=== PATIENT | male | born 1960 | race African-American/Black ===

== ENCOUNTER 2017-01-08 15:51 | Emergency (ER) | payer OTHER ==
[~2017-01-08] VITALS: Ht 172.7 cm; Wt 90.0 kg
[2017-01-08] MEDS ORDERED: TETANUS, DIPHTHERIA, PERTUSSIS VAC/PF 0.5ML (>7YR OLD) IM ONE (19:15)
[2017-01-08] MEDS ORDERED: HYDROCODONE/ACETAMINOPHEN 5/325MG TABLET PO ONE (19:15)
[2017-01-08] MEDS ORDERED: BACITRACIN ZINC OINT UDPKT TOP ONE (19:15)
[2017-01-08 20:10] VITALS: BP 135/77
== END 2017-01-08 20:20 | disposition home or self-care (01) ==
LOC: ER 17:20
DX: S51.852A Open bite of left forearm, initial encounter (principal); F32.9 Major depressive disorder, single episode, unspecified; I10 Essential (primary) hypertension; W54.0XXA Bitten by dog, initial encounter; Y93.89 Activity, other specified; Y92.89 Other specified places as the place of occurrence of the external cause; Y99.8 Other external cause status
CPT/HCPCS: 90471; 90715; 99283; A4217; Z7610

== ENCOUNTER 2017-01-11 09:16 | Emergency (ER) | payer OTHER ==
[~2017-01-11] VITALS: Ht 165.1 cm; Wt 93.0 kg
[2017-01-11 09:50] VITALS: BP 120/85
== END 2017-01-11 13:41 | disposition home or self-care (01) ==
LOC: ER 13:02
DX: Z48.00 Encounter for change or removal of nonsurgical wound dressing (principal); W54.0XXD Bitten by dog, subsequent encounter; S51.852D Open bite of left forearm, subsequent encounter; I10 Essential (primary) hypertension; Z86.59 Personal history of other mental and behavioral disorders
CPT/HCPCS: 99283

== ENCOUNTER 2017-01-13 13:03 | Emergency (ER) | payer OTHER ==
[~2017-01-13] VITALS: Ht 165.1 cm; Wt 93.0 kg
[2017-01-13 13:16] VITALS: BP 112/72
== END 2017-01-13 16:28 | disposition left against medical advice (07) ==
LOC: ER 13:03
DX: Z53.21 Procedure and treatment not carried out due to patient leaving prior to being seen by health care provider (principal)